=== PATIENT | male | born 1945 | race Caucasian/White ===

== ENCOUNTER 2016-06-02 08:31 | Emergency (ER) | payer MEDICARE, OTHER ==
[2016-06-02] MEDS ORDERED: Acetaminophen/HYDROcodone 325-5 MG Tab ONE (09:00)
[2016-06-02 09:19] VITALS: BP 158/86
[2016-06-02] MEDS ORDERED: Ketorolac 60 MG/2 ML SDV ONE (09:29)
[2016-06-02] MEDS ORDERED: Ketorolac 60 MG/2 ML SDV IM ONE (09:31)
--- NOTE | 2016-06-02 09:32 | EDM.PDOC ---
ED HPI GENERAL MEDICAL PROBLEM - General Chief Complaint: General Stated Complaint: FALL Time Seen by Provider: 06/02/16 09:10 Source of Information: Reports: Patient History Limitations: Reports: No limitations - History of Present Illness INITIAL COMMENTS - FREE TEXT/NARRATIVE: Pt is a 70 year old male who present to emergency room with left lower chest pain. Apprently he was getting up form his bed and accidentally fell and hit the left posterior chest against the end table and sustained bruising of his back. He claims he did feel sharp pain in the chest wall. He took some narposyn and left over vicdoin and went to bed. He claims the pain is 10/10 today. Hurts to take deep breath and also any movement of the chest hurts. No wheezing, shortness of breath. no cyanosis. no air hunger. no fever or chills. Onset Date: 06/01/16 Onset Time: 21:00 Location: Reports: chest Quality: Reports: Ache Severity: moderate Improves with: Reports: Immobilization, Rest Worsens with: Reports: Breathing, Movement Associated Symptoms: Denies: confusion, cough, diaphoresis, fever/chills, headaches, nausea/vomiting, rash, shortness of breath, syncope, weakness Treatments ER NURSE: Reports: Other (see below) Other Treatments ER NURSE: vicodin and Aleve Left Flank Pain Score (Numeric/FACES): 2 - Related Data Allergies Allergy/AdvReac Type Severity Reaction Status Date / Time Penicillins Allergy Airway Verified 06/02/16 09:00 Tightness Home Meds: Home Meds Hydrochlorothiazide 25 mg PO DAILY 06/02/16 [History] Valsartan [Diovan] 160 mg PO DAILY 06/02/16 [History] Past Medical History Cardiovascular History: Reports: High cholesterol, Hypertension Respiratory History: Reports: Bronchitis, recurrent Dermatologic History: Reports: Other (see below) Other Dermatologic History: chronic dry skin - Past Surgical History GI Surgical History: Reports: Appendectomy Social & Family History - Tobacco Use Smoking Status *Q: Current Every Day Smoker Years of Tobacco use: 45 Packs/Tins Daily: 1 - Recreational Drug Use Recreational Drug Use: No ED ROS GENERAL - Review of Systems Review Of Systems: See Below Constitutional: Denies: fever, chills, diaphoresis HEENT: Denies: Sinus problem, Throat pain, Throat swelling Respiratory: Denies: Shortness of Breath, Cough, Sputum Cardiovascular: Denies: Dyspnea on exertion, Edema, Lightheadedness GI/Abdominal: Denies: Abdominal pain, Constipation, Nausea, Vomiting : Denies: discharge, dysuria, flank pain Musculoskeletal: Denies: joint pain, joint swelling Skin: Denies: pruritis, rash Neurological: Denies: Dizziness, Headache ED EXAM, GENERAL - Physical Exam Exam: See Below Exam Limited By: No limitations General Appearance: alert, WD/WN, mild distress Eye Exam: bilateral eye: EOMI, PERRL Ears: normal external exam Ear Exam: bilateral ear: auricle normal, canal normal, TM normal Nose: normal inspection, normal mucosa, no blood Throat/Mouth: Normal inspection, Normal lips, Normal teeth, Normal gums, Normal oropharynx, Normal voice, No airway compromise Head: atraumatic, normocephalic Neck: normal inspection, supple, non-tender, full range of motion Respiratory/Chest: no respiratory distress, lungs clear, normal breath sounds, no accessory muscle use, other. No: accessory muscle use, retractions (There is skin bruisng over the posterolateral aspect of the lower left chest wall. About 4 cm in length, hemostatic. also there is some skin contusion around it. He is very tender over the left 10 and 11 th ribs) Cardiovascular: normal peripheral pulses, regular rate, rhythm, no edema, no gallop, no JVD, no murmur, no rub Extremities: normal inspection, normal range of motion, non-tender, normal capillary refill, no pedal edema Neurological: alert, oriented, CN II-XII intact, normal cognition, normal gait, normal reflexes, no motor/sensory deficits Skin Exam: Warm, Intact, Ecchymosis (as described already in the chest section of the note) Course - Vital Signs Text/Narrative:: Pt does have left 9 rib fracture posteriorly. I did get UA done to make sure there is no renal injury. His UA is negative for blood. Pt reassured that he has isolated left 9th rib fracture. I have started him on ibuprofen 600mg 3 times daily and vicodin 5/325 TID to use in between as needed. Cold compress to the area of injury. Advised deep breathing exercise to prevent pneumonia and to keep lung expanded. Pain should gradually improve in 2-3 wks time. He claims he is upto date on tetanus. Followup with his primary care physician in 1-2 wks for further care or symptoms worsen. Last Recorded V/S: Last Vital Signs Temp 98.2 F 06/02/16 09:00 Pulse 77 06/02/16 09:00 Resp 18 06/02/16 09:00 BP 158/86 H 06/02/16 09:00 Pulse Ox 95 06/02/16 09:00 - Orders/Labs/Meds Orders: Active Orders 24 hr Category Date Time Status Ribs 2V w Chest Lt [CR] Stat Exams 06/02/16 09:26 Taken Labs: Laboratory Tests 06/02/16 Range/Units 09:34 Urine Color Yellow Urine Appearance Clear (CLEAR) Urine pH 5.5 (5.0-8.0) Ur Specific [place] 1.025 (1.003-1.030) Urine Protein Negative (NEGATIVE) mg/dL Urine Glucose (UA) Negative (NEGATIVE) mg/dL Urine Ketones Negative (NEGATIVE) mg/dL Urine Occult Blood Negative (NEGATIVE) Urine Nitrite Negative (NEGATIVE) Urine Bilirubin Negative (NEGATIVE) Urine Urobilinogen 0.2 (0.2-1.0) E.U./dL Ur Leukocyte Esterase Negative (NEGATIVE) Urine RBC Not seen /HPF Urine WBC 0-5 H /HPF Ur Squamous Epith Cells Occasional /HPF Urine Bacteria Not seen /HPF Meds: Medications Discontinued Medications Generic Name Dose Route Start Last Admin Trade Name Kaidenq PRN Reason Stop Dose Admin Ketorolac Tromethamine Confirm 06/02/16 09:29 06/02/16 09:49 Toradol Administered 06/02/16 09:30 Not Given Dose 60 mg .ROUTE .STK-MED ONE Ketorolac Tromethamine 60 mg 06/02/16 09:31 06/02/16 09:30 Toradol IM 06/02/16 09:32 60 mg ONETIME ONE Administration Departure - Departure Time of Disposition: 10:30 Disposition: Home, Self-Care 01 Condition: fair Clinical Impression: Closed rib fracture Instructions: Acetaminophen; Hydrocodone tablets or capsules, Incentive Spirometer, Rib Fracture Referrals: PCP,None [Primary Care Provider] - Forms: ED Department Discharge Additional Instructions: Take Vicodin every 8 hours as needed for pain. Take it regularly for the next 10 days, then may decrease the amount you are taking. Take Motrin 600mg every 8 hours for pain. Alternate this med with the Vicodin, so he is getting something every 4 hours. Use incentive spirometer every hour while awake. Try to get it up to 1500. This will help you deep breath, so you don't get pneumonia. For the next 48 hours use cold therapy to the area for 15 min 4-5 times a day. Then you may switch to heat therapy. - Problem List & Annotations (1) Closed rib fracture SNOMED Code(s): 60981684 Code(s): S22.39XA - FRACTURE OF ONE RIB, UNSP SIDE, INIT FOR CLOS FX Status : Acute - Problem List Review Problem List Initiated/Reviewed/Updated: Yes - My Orders Last 24 Hours: My Active Orders 06/02/16 09:26 Ribs 2V w Chest Lt [CR] Stat - Assessment/Plan Last 24 Hours: My Active Orders 06/02/16 09:26 Ribs 2V w Chest Lt [CR] Stat Assessment:: left 9th rib fracture Plan: Pt does have left 9 rib fracture posteriorly. I did get UA done to make sure there is no renal injury. His UA is negative for blood. Pt reassured that he has isolated left 9th rib fracture. I have started him on ibuprofen 600mg 3 times daily and vicodin 5/325 TID to use in between as needed. Cold compress to the area of injury. Advised deep breathing exercise to prevent pneumonia and to keep lung expanded. Pain should gradually improve in 2-3 wks time. He claims he is upto date on tetanus. Followup with his primary care physician in 1-2 wks for further care or symptoms worsen.
--- NOTE | 2016-06-03 22:09 | CR ---
DATE OF SERVICE: 06/02/2016 CLINICAL DATA: Chest injury. PA CHEST AND LEFT RIBS The heart size is normal. The aorta is calcified and ectatic. The lungs are clear. No pneumothorax. No pleural effusions. No areas of consolidation. There are mildly displaced fractures of the left 10th and 11th ribs posterolaterally. There is also a questionable fracture of the left 12th rib posteriorly. No other rib abnormalities. I do not see any other significant findings. IMPRESSION: Multiple rib fractures. See above. [id number] [facility]
== END 2016-06-02 10:28 | disposition home or self-care (01) ==
LOC: LB.ED 08:31
DX: S22.32XA Fracture of one rib, left side, initial encounter for closed fracture (principal); E78.00 Pure hypercholesterolemia, unspecified; I10 Essential (primary) hypertension; F17.210 Nicotine dependence, cigarettes, uncomplicated; Z90.49 Acquired absence of other specified parts of digestive tract; Z88.0 Allergy status to penicillin; W01.10XA Fall on same level from slipping, tripping and stumbling with subsequent striking against unspecified object, initial encounter
CPT/HCPCS: 71101; 81001; 96372; 99284; A9270; J1885; 99283

== ENCOUNTER 2021-09-17 13:05 | Emergency (ER) | payer MEDICARE, OTHER ==
[2021-09-17] MEDS ORDERED: methylPREDNISolone Sodium Succinate 125 MG/2 ML SDV IVPUSH ONE (13:30)
[2021-09-17] MEDS ORDERED: predniSONE 20 MG Tab ONE (13:30)
[2021-09-17] MEDS ORDERED: Levofloxacin 500 MG Tab ONE (13:30)
[2021-09-17] MEDS ORDERED: Azithromycin 500 MG Tab ONE (13:30)
[2021-09-17] MEDS ORDERED: Azithromycin 500 MG in Sodium Chloride 0.9% 250 ML IV ONE (13:31)
[2021-09-17 13:47] LABS: ESTIMATED GFR 90 mL/min (>60)
[2021-09-17] MEDS: Albuterol/Ipratropium 3.0-0.5 MG/3 ML Neb Soln NEB SCH ×3 (14:23→15:27)
[2021-09-17] MEDS ORDERED: Albuterol/Ipratropium 3.0-0.5 MG/3 ML Neb Soln ONE ×2 (14:32→15:36)
[2021-09-17 16:45] VITALS: PULSE 96
[2021-09-17 16:46] VITALS: BP 168/95
== END 2021-09-17 16:16 | disposition home or self-care (01) ==
LOC: LB.ED 13:05
DX: J44.1 Chronic obstructive pulmonary disease with (acute) exacerbation (principal); R21 Rash and other nonspecific skin eruption; I10 Essential (primary) hypertension; Z20.822 Contact with and (suspected) exposure to COVID-19; Z88.0 Allergy status to penicillin; Z79.899 Other long term (current) drug therapy
CPT/HCPCS: 36415; 71045; 80048; 85025; 87804; 87804-59; 93005; 93010; 96365; 96375; 99283; 99285-25; A9270-GY; J0456; J2930; J7050; J7512; J7620; U0002

== ENCOUNTER 2022-03-17 16:03 | Emergency (ER) | payer MEDICARE ==
[2022-03-17 16:33] LABS: ESTIMATED GFR 95 mL/min (>60)
[2022-03-17 16:50] VITALS: BP 147/76; PULSE 86
== END 2022-03-17 17:06 | disposition home or self-care (01) ==
LOC: LB.ED 16:03
DX: U07.1 COVID-19 (principal); J44.9 Chronic obstructive pulmonary disease, unspecified; I10 Essential (primary) hypertension; Z88.1 Allergy status to other antibiotic agents; Z88.0 Allergy status to penicillin; Z79.899 Other long term (current) drug therapy; Z90.49 Acquired absence of other specified parts of digestive tract
CPT/HCPCS: 36415; 80048; 99283

== ENCOUNTER 2022-04-22 13:40 | Emergency (ER) | payer MEDICARE ==
[2022-04-22] MEDS: Ketorolac 60 MG/2 ML SDV IM ONE (13:55)
[2022-04-22] MEDS: Orphenadrine 60 MG/2 ML Inj IM ONE (14:35)
[2022-04-22] MEDS: Magnesium Citrate Solution 296 ML Bottle PO ONE (15:28)
[2022-04-22] MEDS: Lactulose Soln 10 GM/15 ML 15 ML UD Cup PO ONE (15:42)
[2022-04-22] MEDS ORDERED: traMADol 50 MG Tab ONE (17:00)
[2022-04-22 18:39] VITALS: BP 158/112; PULSE 92
== END 2022-04-22 17:50 | disposition home or self-care (01) ==
LOC: LB.ED 13:40
DX: M54.50 Low back pain, unspecified (principal); I10 Essential (primary) hypertension; J44.9 Chronic obstructive pulmonary disease, unspecified; E78.00 Pure hypercholesterolemia, unspecified; Z88.1 Allergy status to other antibiotic agents; Z88.0 Allergy status to penicillin
CPT/HCPCS: 72131; 81003; 96372; 99284; A9270; J1885; J2360; 99282

== ENCOUNTER 2023-02-27 18:37 | Inpatient (IN) | payer OTHER, MEDICARE ==
[2023-02-27] MEDS ORDERED: methylPREDNISolone Sodium Succinate 125 MG/2 ML SDV IVPUSH ONE (20:15)
[2023-02-27] MEDS ORDERED: Albuterol/Ipratropium 3.0-0.5 MG/3 ML Neb Soln NEB ONE (20:15)
[2023-02-27 20:31] LABS: BASOPHILS ABSOLUTE AUTO 0.01 K/uL (0.02-0.10); BASOPHILS PERCENT AUTO 0.1 % (0.0-0.5); EOSINOPHILS ABSOLUTE AUTO 0.01 K/uL (0.04-0.40); EOSINOPHILS PERCENT AUTO 0.1 % (1.0-5.0); HEMATOCRIT 39.9 % (40.0-54.0); HEMOGLOBIN 13.2 g/dL (13.0-18.0); LYMPHOCYTES ABSOLUTE AUTO 0.45 K/uL (1.50-4.00); LYMPHOCYTES PERCENT AUTO 5.9 % (20.0-40.0); MEAN CORPUSCULAR HEMOGLOBIN 31.8 pg (27.0-32.0); MEAN CORPUSCULAR HGB CONC 33.1 g/dL (31.0-35.0); MEAN CORPUSCULAR VOLUME 96 fL (76-96); MEAN PLATELET VOLUME 9.5 fL (6.0-10.0); MONOCYTES ABSOLUTE AUTO 0.71 K/uL (0.20-0.80); MONOCYTES PERCENT AUTO 9.3 % (3.0-10.0); NEUTROPHILS ABSOLUTE AUTO 6.45 K/uL (2.00-7.50); NEUTROPHILS PERCENT AUTO 84.6 % (45.0-70.0); PLATELET COUNT,PLT 322 K/uL (150-400); RED BLOOD CELL COUNT 4.15 M/uL (4.50-6.50); RED CELL DISTRIBUTION WIDTH 12.6 % (11.0-16.0); WHITE BLOOD CELL COUNT,WBC 7.6 K/uL (4.0-11.0)
[2023-02-27] MEDS ORDERED: Sodium Chloride 0.9% 10 ML Syringe FLUSH PRN (20:35)
[2023-02-27 20:40] LABS: BASE EXCESS VENOUS 2.6 mm/L (-2-3); PCO2 VENOUS 40.7 mm/Hg (41-51); PH,VENOUS 7.43 (7.31-7.41)
[2023-02-27 20:45] LABS: A/G RATIO 0.9 (0.8-2.0); ALBUMIN 3.4 g/dL (3.4-5.0); ANION GAP 9.2 mmol/L (5.0-15.0); BILIRUBIN TOTAL 0.6 mg/dL (0.0-1.0); CALCIUM 8.9 mg/dL (8.5-10.1); CARBON DIOXIDE,CO2 30.4 mmol/L (21.0-32.0); CREATININE 0.88 mg/dL (0.70-1.30); EST CRCL DRUG DOSING (CG) 72.53 mL/min; POTASSIUM,K 3.6 mmol/L (3.5-5.1)
[2023-02-27] MEDS ORDERED: Sodium Chloride 0.9% 1,000 ML IV ONE (21:10)
[2023-02-27] MEDS ORDERED: Levofloxacin/Dextrose 5%-Water 500 MG in Levofloxacin/Dextrose 5%-Water 100 ML IV SCH (21:15)
[2023-02-27 21:45] LABS: INFLUENZA A NAA NEGATIVE (NEGATIVE); INFLUENZA B NAA NEGATIVE (NEGATIVE); RESPIRATORY SYNCYTIAL VIR NAA POSITIVE (NEGATIVE)
[2023-02-27 21:47] LABS: CORONAVIRUS COVID-19 NAA NEGATIVE (NEGATIVE)
[2023-02-27] MEDS ORDERED: Albuterol 90 MCG/6.7 GM Inhaler INH PRN ×2 (21:53→21:58)
[2023-02-27] MEDS ORDERED: Promethazine 6.25 MG in Sodium Chloride 0.9% 50 ML IV PRN (22:51)
[2023-02-27] MEDS ORDERED: Albuterol/Ipratropium 3.0-0.5 MG/3 ML Neb Soln NEB PRN (22:59)
[2023-02-27] MEDS ORDERED: Nicotine 14 MG/24 Hr Patch TRDERM SCH (23:00)
[2023-02-28] MEDS ORDERED: Levofloxacin/Dextrose 5%-Water 750 MG in Levofloxacin/Dextrose 5%-Water 150 ML IV SCH
[2023-02-28] MEDS: Levofloxacin/Dextrose 5%-Water 150 ML IV SCH (00:38)
[2023-02-28] MEDS ORDERED: predniSONE 20 MG Tab PO SCH (08:00)
[2023-02-28] MEDS ORDERED: Tiotropium Inhaler 18 MCG Inhalation Powder Cap Kit of 5 INH SCH (08:00)
[2023-02-28] MEDS ORDERED: Formoterol/Mometasone 200-5 MCG 8.8 GM Inhaler IH SCH (08:00)
[2023-02-28] MEDS ORDERED: DOXAZOSIN MESYLATE 4 MG PO SCH (08:00)
[2023-02-28] MEDS ORDERED: MAGNESIUM CITRATE 100 MG PO SCH ×2 (08:00)
[2023-02-28 08:17] LABS: HEMATOCRIT 40.7 % (40.0-54.0); HEMOGLOBIN 13.5 g/dL (13.0-18.0); LYMPHOCYTES ABSOLUTE AUTO 0.26 K/uL (1.50-4.00); LYMPHOCYTES PERCENT AUTO 6.8 % (20.0-40.0); MEAN CORPUSCULAR HEMOGLOBIN 32.1 pg (27.0-32.0); MEAN CORPUSCULAR HGB CONC 33.2 g/dL (31.0-35.0); MEAN CORPUSCULAR VOLUME 97 fL (76-96); MEAN PLATELET VOLUME 9.5 fL (6.0-10.0); MONOCYTES ABSOLUTE AUTO 0.13 K/uL (0.20-0.80); MONOCYTES PERCENT AUTO 3.4 % (3.0-10.0); NEUTROPHILS ABSOLUTE AUTO 3.43 K/uL (2.00-7.50); NEUTROPHILS PERCENT AUTO 89.8 % (45.0-70.0); PLATELET COUNT,PLT 314 K/uL (150-400); RED BLOOD CELL COUNT 4.21 M/uL (4.50-6.50); RED CELL DISTRIBUTION WIDTH 12.4 % (11.0-16.0); WHITE BLOOD CELL COUNT,WBC 3.8 K/uL (4.0-11.0)
[2023-02-28] MEDS: Nicotine 14 MG/24 Hr Patch TRDERM SCH ×2 (08:21→08:29)
[2023-02-28] MEDS: Albuterol/Ipratropium 3.0-0.5 MG/3 ML Neb Soln INH SCH ×4 (08:21→20:17)
[2023-02-28] MEDS: Hydrochlorothiazide 25 MG Tab PO SCH (08:22)
[2023-02-28] MEDS: Enoxaparin 40 MG/0.4 ML Syringe SUBCUT SCH (08:22)
[2023-02-28] MEDS: guaiFENesin 600 MG Tab.ER PO SCH ×2 (08:23→20:17)
[2023-02-28] MEDS: Cholecalciferol (Vitamin D3) 2,000 Unit Cap PO SCH (08:23)
[2023-02-28] MEDS: Montelukast 10 MG Tab PO SCH (08:23)
[2023-02-28] MEDS: Losartan 50 MG Tab PO SCH (08:24)
[2023-02-28] MEDS: methylPREDNISolone Sodium Succinate 125 MG/2 ML SDV IVPUSH SCH (08:24)
[2023-02-28 08:41] LABS: A/G RATIO 0.8 (0.8-2.0); ALBUMIN 3.2 g/dL (3.4-5.0); ANION GAP 10.2 mmol/L (5.0-15.0); BILIRUBIN TOTAL 0.3 mg/dL (0.0-1.0); BUN/CREATININE RATIO 16.4 (6-25); CALCIUM 8.5 mg/dL (8.5-10.1); CARBON DIOXIDE,CO2 29.1 mmol/L (21.0-32.0); CREATININE 0.73 mg/dL (0.70-1.30); EST CRCL DRUG DOSING (CG) 87.43 mL/min; POTASSIUM,K 4.3 mmol/L (3.5-5.1); PROTEIN TOTAL,TP 7.1 g/dL (6.4-8.2)
[2023-02-28] MEDS: Megestrol Susp 40 MG/ML ML (240 ML Bottle) PO SCH (08:43)
[2023-02-28] MEDS: Tiotropium Bromide 4 GM Inhalation Spray (2.5mcg/1 dose; 10 doses) INH SCH (09:05)
[2023-02-28] MEDS: Sodium Chloride 0.9% 1,000 ML IV SCH ×2 (10:05→21:14)
[2023-02-28] MEDS: Formoterol/Mometasone 200-5 MCG 8.8 GM Inhaler IH SCH (20:17)
[2023-02-28] MEDS: Doxazosin 2 MG Tab PO SCH (20:18)
[2023-03-01] MEDS: Levofloxacin/Dextrose 5%-Water 150 ML IV SCH (00:14)
[2023-03-01 08:03] LABS: BASOPHILS ABSOLUTE AUTO 0.01 K/uL (0.02-0.10); BASOPHILS PERCENT AUTO 0.1 % (0.0-0.5); HEMATOCRIT 39.8 % (40.0-54.0); HEMOGLOBIN 13.1 g/dL (13.0-18.0); LYMPHOCYTES ABSOLUTE AUTO 0.66 K/uL (1.50-4.00); LYMPHOCYTES PERCENT AUTO 9.2 % (20.0-40.0); MEAN CORPUSCULAR HEMOGLOBIN 31.9 pg (27.0-32.0); MEAN CORPUSCULAR HGB CONC 32.9 g/dL (31.0-35.0); MEAN CORPUSCULAR VOLUME 97 fL (76-96); MEAN PLATELET VOLUME 9.3 fL (6.0-10.0); MONOCYTES ABSOLUTE AUTO 0.98 K/uL (0.20-0.80); MONOCYTES PERCENT AUTO 13.7 % (3.0-10.0); NEUTROPHILS ABSOLUTE AUTO 5.52 K/uL (2.00-7.50); PLATELET COUNT,PLT 295 K/uL (150-400); RED BLOOD CELL COUNT 4.11 M/uL (4.50-6.50); RED CELL DISTRIBUTION WIDTH 12.3 % (11.0-16.0); WHITE BLOOD CELL COUNT,WBC 7.2 K/uL (4.0-11.0)
[2023-03-01 08:26] LABS: A/G RATIO 0.9 (0.8-2.0); BILIRUBIN TOTAL 0.3 mg/dL (0.0-1.0); BUN/CREATININE RATIO 21.9 (6-25); CALCIUM 8.6 mg/dL (8.5-10.1); CREATININE 0.64 mg/dL (0.70-1.30); EST CRCL DRUG DOSING (CG) 99.73 mL/min; POTASSIUM,K 3.8 mmol/L (3.5-5.1); PROTEIN TOTAL,TP 6.5 g/dL (6.4-8.2)
[2023-03-01] MEDS: Losartan 50 MG Tab PO SCH (08:47)
[2023-03-01] MEDS: guaiFENesin 600 MG Tab.ER PO SCH ×2 (08:49→19:32)
[2023-03-01] MEDS: Hydrochlorothiazide 25 MG Tab PO SCH (08:49)
[2023-03-01] MEDS: Cholecalciferol (Vitamin D3) 2,000 Unit Cap PO SCH (08:50)
[2023-03-01] MEDS: Nicotine 14 MG/24 Hr Patch TRDERM SCH (08:52)
[2023-03-01] MEDS: Formoterol/Mometasone 200-5 MCG 8.8 GM Inhaler IH SCH ×2 (08:52→19:32)
[2023-03-01] MEDS: Enoxaparin 40 MG/0.4 ML Syringe SUBCUT SCH (08:52)
[2023-03-01] MEDS: Albuterol/Ipratropium 3.0-0.5 MG/3 ML Neb Soln INH SCH ×4 (08:55→19:31)
[2023-03-01] MEDS: Tiotropium Bromide 4 GM Inhalation Spray (2.5mcg/1 dose; 10 doses) INH SCH (08:56)
[2023-03-01] MEDS: Megestrol Susp 40 MG/ML ML (240 ML Bottle) PO SCH (08:56)
[2023-03-01] MEDS: methylPREDNISolone Sodium Succinate 125 MG/2 ML SDV IVPUSH SCH (08:59)
[2023-03-01] MEDS: Montelukast 10 MG Tab PO SCH (09:01)
[2023-03-01 10:29] LABS: CARBON DIOXIDE,CO2 29.5 mmol/L (21.0-32.0)
[2023-03-01 10:30] LABS: ANION GAP 10.3 mmol/L (5.0-15.0)
[2023-03-01] MEDS: Sodium Chloride 0.9% 1,000 ML IV SCH (15:07)
[2023-03-01] MEDS: Doxazosin 2 MG Tab PO SCH (19:32)
[2023-03-01] MEDS: Acetaminophen 325 MG Tab PO PRN (19:33)
[2023-03-01] MEDS: Benzonatate 100 MG Cap PO PRN (19:33)
[2023-03-02] MEDS: Levofloxacin/Dextrose 5%-Water 150 ML IV SCH (00:09)
[2023-03-02] MEDS: methylPREDNISolone Sodium Succinate 125 MG/2 ML SDV IVPUSH SCH (08:34)
[2023-03-02] MEDS: Hydrochlorothiazide 25 MG Tab PO SCH (08:38)
[2023-03-02] MEDS: Losartan 50 MG Tab PO SCH (08:39)
[2023-03-02] MEDS: Cholecalciferol (Vitamin D3) 2,000 Unit Cap PO SCH (08:40)
[2023-03-02] MEDS: Megestrol Susp 40 MG/ML ML (240 ML Bottle) PO SCH (08:40)
[2023-03-02] MEDS: guaiFENesin 600 MG Tab.ER PO SCH ×2 (08:40→19:26)
[2023-03-02] MEDS: Enoxaparin 40 MG/0.4 ML Syringe SUBCUT SCH (08:40)
[2023-03-02] MEDS: Tiotropium Bromide 4 GM Inhalation Spray (2.5mcg/1 dose; 10 doses) INH SCH (08:41)
[2023-03-02] MEDS: Albuterol/Ipratropium 3.0-0.5 MG/3 ML Neb Soln INH SCH ×4 (08:41→19:28)
[2023-03-02] MEDS: Nicotine 14 MG/24 Hr Patch TRDERM SCH (08:41)
[2023-03-02] MEDS: Formoterol/Mometasone 200-5 MCG 8.8 GM Inhaler IH SCH ×2 (08:41→19:28)
[2023-03-02] MEDS: Montelukast 10 MG Tab PO SCH (08:42)
[2023-03-02] MEDS: Polyethylene Glycol 3350 Powder 17 GM Packet PO SCH (10:15)
[2023-03-02] MEDS ORDERED: Non-Formulary Medication 1 Each NAS SCH (15:00)
[2023-03-02] MEDS: Doxazosin 2 MG Tab PO SCH (19:27)
[2023-03-02] MEDS: Levofloxacin 750 MG Tab PO SCH (19:27)
[2023-03-02] MEDS: Acetaminophen 325 MG Tab PO PRN (21:44)
[2023-03-02] MEDS: Benzonatate 100 MG Cap PO PRN (21:45)
[2023-03-03] MEDS: Losartan 50 MG Tab PO SCH (08:06)
[2023-03-03] MEDS: Cholecalciferol (Vitamin D3) 2,000 Unit Cap PO SCH (08:07)
[2023-03-03] MEDS: Hydrochlorothiazide 25 MG Tab PO SCH (08:07)
[2023-03-03] MEDS: guaiFENesin 600 MG Tab.ER PO SCH ×2 (08:07→20:56)
[2023-03-03] MEDS: Polyethylene Glycol 3350 Powder 17 GM Packet PO SCH (08:08)
[2023-03-03] MEDS: Tiotropium Bromide 4 GM Inhalation Spray (2.5mcg/1 dose; 10 doses) INH SCH (08:08)
[2023-03-03] MEDS: Albuterol/Ipratropium 3.0-0.5 MG/3 ML Neb Soln INH SCH ×4 (08:09→20:54)
[2023-03-03] MEDS: Enoxaparin 40 MG/0.4 ML Syringe SUBCUT SCH (08:09)
[2023-03-03] MEDS: Formoterol/Mometasone 200-5 MCG 8.8 GM Inhaler IH SCH ×2 (08:09→20:54)
[2023-03-03] MEDS: Nicotine 14 MG/24 Hr Patch TRDERM SCH (08:09)
[2023-03-03] MEDS: Megestrol Susp 40 MG/ML ML (240 ML Bottle) PO SCH (08:10)
[2023-03-03] MEDS: Montelukast 10 MG Tab PO SCH (08:11)
[2023-03-03] MEDS: methylPREDNISolone Sodium Succinate 125 MG/2 ML SDV IVPUSH SCH (09:42)
[2023-03-03] MEDS: Doxazosin 2 MG Tab PO SCH (20:55)
[2023-03-03] MEDS: Levofloxacin 750 MG Tab PO SCH (20:56)
[2023-03-04] MEDS ORDERED: predniSONE 20 MG Tab PO SCH (07:00)
[2023-03-04] MEDS: Tiotropium Bromide 4 GM Inhalation Spray (2.5mcg/1 dose; 10 doses) INH SCH (08:02)
[2023-03-04] MEDS: Enoxaparin 40 MG/0.4 ML Syringe SUBCUT SCH (08:03)
[2023-03-04] MEDS: Losartan 50 MG Tab PO SCH (08:04)
[2023-03-04] MEDS: Formoterol/Mometasone 200-5 MCG 8.8 GM Inhaler IH SCH (08:05)
[2023-03-04] MEDS: Nicotine 14 MG/24 Hr Patch TRDERM SCH (08:06)
[2023-03-04] MEDS: Albuterol/Ipratropium 3.0-0.5 MG/3 ML Neb Soln INH SCH ×2 (08:06→12:02)
[2023-03-04] MEDS: Hydrochlorothiazide 25 MG Tab PO SCH (08:07)
[2023-03-04] MEDS: guaiFENesin 600 MG Tab.ER PO SCH (08:08)
[2023-03-04] MEDS: Cholecalciferol (Vitamin D3) 2,000 Unit Cap PO SCH (08:08)
[2023-03-04] MEDS: Polyethylene Glycol 3350 Powder 17 GM Packet PO SCH (08:08)
[2023-03-04] MEDS: Montelukast 10 MG Tab PO SCH (08:28)
[2023-03-04] MEDS ORDERED: MEGESTROL ACETATE 40 MG PO SCH (09:00)
[2023-03-04 09:08] VITALS: PULSE 99
[2023-03-04 12:05] VITALS: BP 110/71
== END 2023-03-04 12:20 | disposition home or self-care (01) | DRG 193 ==
LOC: LB.ED 18:37 → LB.MS 21:57
PROVIDERS: ADMIT Physician Assistant; ATTEND Physician Assistant
DX: J18.9 Pneumonia, unspecified organism (principal); J96.01 Acute respiratory failure with hypoxia; E87.1 Hypo-osmolality and hyponatremia; J44.1 Chronic obstructive pulmonary disease with (acute) exacerbation; Z88.1 Allergy status to other antibiotic agents; J44.0 Chronic obstructive pulmonary disease with (acute) lower respiratory infection; N40.0 Benign prostatic hyperplasia without lower urinary tract symptoms; Z86.16 Personal history of COVID-19; E78.00 Pure hypercholesterolemia, unspecified; B97.4 Respiratory syncytial virus as the cause of diseases classified elsewhere; Z20.822 Contact with and (suspected) exposure to COVID-19; I10 Essential (primary) hypertension; H91.90 Unspecified hearing loss, unspecified ear; G89.29 Other chronic pain; M54.9 Dorsalgia, unspecified; M19.90 Unspecified osteoarthritis, unspecified site; E78.5 Hyperlipidemia, unspecified; G47.33 Obstructive sleep apnea (adult) (pediatric); Z90.49 Acquired absence of other specified parts of digestive tract; Z98.890 Other specified postprocedural states; Z87.891 Personal history of nicotine dependence; Z79.890 Hormone replacement therapy; Z85.46 Personal history of malignant neoplasm of prostate; Z79.899 Other long term (current) drug therapy; Z88.0 Allergy status to penicillin; Z11.52 Encounter for screening for COVID-19
CPT/HCPCS: 0241U; 36415; 71045; 80053; 82803; 83605; 83880; 85025; 87205; 94640; 96374; 97161-GP; 97165-GO; 99222; 99231; 99232; 99238; 99285-25; A9270-GY; J1650; J1956; J2930; J3490; J7030; J7512; J7620

== ENCOUNTER 2024-04-27 09:44 | Day surgery (SDC) | payer MEDICARE, OTHER ==
[~2024-04-27 09:44] MED LIST: Metoclopramide 10 MG/2 ML SDV IV PRN; Sodium Chloride 0.9% 1,000 ML IV SCH
[2024-04-27] MEDS: Sodium Chloride 0.9% 1,000 ML IV SCH (10:29)
[2024-04-27] MEDS ORDERED: Propofol 200 MG/20 ML SDV ONE (11:00)
[2024-04-27 12:24] VITALS: BP 126/65; PULSE 84
== END 2024-04-27 12:20 | disposition home or self-care (01) ==
LOC: LB.SDS 09:44
PROVIDERS: ATTEND Surgery
DX: K57.30 Diverticulosis of large intestine without perforation or abscess without bleeding (principal); J44.9 Chronic obstructive pulmonary disease, unspecified; I10 Essential (primary) hypertension; E78.00 Pure hypercholesterolemia, unspecified; Z79.899 Other long term (current) drug therapy; Z88.0 Allergy status to penicillin; Z88.1 Allergy status to other antibiotic agents
CPT/HCPCS: 45378; 82947; J2704; J7030